=== PATIENT | female | born 1955 | race Caucasian/White ===

== ENCOUNTER 2017-04-20 11:51 | Day surgery (SDC) | payer OTHER ==
[~2017-04-20] VITALS: Ht 165.1 cm; Wt 54.4 kg
[~2017-04-20 11:51] MED LIST: 0.9% Sodium Chloride 1,000 ML IV PRN; RANI150C4 PO; Sodium Chloride LOK Flush 10 mL Syringe IV PRN; fentaNYL-PF 50 mCg/mL 2 mL Inj IVPUSH PRN
[2017-04-20 12:13] VITALS: BP 144/96; PULSE 77; RESP 20; O2SAT 100
[2017-04-20] MEDS ORDERED: CHOL3000 PO (12:36)
[2017-04-20 13:12] VITALS: BP 118/69; PULSE 84; O2SAT 99
[2017-04-20 13:21] VITALS: BP 132/78; PULSE 85; O2SAT 100
--- NOTE | 2017-04-20 14:36 | ENDO ---
[address] [address] ENDOSCOPY PROCEDURE PATIENT: LARA WOLF : 1955 MR#: [id number] ADMIT: 04/20/2017 JOB ID: [id number] DATE: 04/20/2017 TYPE OF OPERATION: 1. Esophagogastroduodenoscopy with biopsy. 2. Colonoscopy. PREOPERATIVE DIAGNOSIS(ES): 1. Rectal itchiness, colorectal cancer screening. 2. Gastroesophageal reflux disease. POSTOPERATIVE DIAGNOSIS(ES): 1. Normal upper endoscopy, status post biopsy. 2. Small internal hemorrhoids. ANESTHESIA: 1. Fentanyl 200 mcg. 2. Versed 10 mg IV administered. COMPLICATIONS: None. BLOOD LOSS: Minimal. DESCRIPTION OF PROCEDURE: After risks and benefits were explained to the patient, informed consent was obtained. After anesthesia administered, upper endoscope was inserted into the mouth and intubated through esophagus, stomach, second portion of the duodenum. Mucosa carefully examined. After the procedure was done, the scope was withdrawn and the procedure terminated. A colonoscope was then inserted per rectum to cecum. Mucosa carefully examined. Prep of the patient was fair. After procedure was done, the scope was withdrawn and the procedure terminated. FINDINGS: Upon inspection of the esophagus, the esophagus was normal without masses, ulcers or lesions. Z-line located 35 cm from incisors. Upon entering the stomach, stomach was normal without masses, ulcers or lesions. Retroflexion normal Duodenal bulb, first and second portion were normal. Biopsies taken from antrum, body and distal esophagus. Upon inspection of the anus, no masses, hemorrhoids, ulcers, fissures are seen. Throughout the entire examination, no polyps, masses or lesions. Retroflexion showed small internal hemorrhoids. IMPRESSION: 1. Small internal hemorrhoids. 2. Normal upper endoscopy status post biopsy. RECOMMENDATION: 1. Await pathology results. 2. Followup in GI clinic as needed.
--- NOTE | 2017-04-25 18:38 | PATH ---
SURGICAL PATHOLOGY Attending Physician:Pb Macias MD CASE STATUS: Signed Out PATIENT NAME: LARA WOLF PID: [id number] : 1955 DATE COLLECTED:04/20/2017 22:42 SPECIMEN: 1: Stomach, Antrum, Biopsy 2: Gastric, Biopsy 3: Esophagus, Biopsy CLINICAL HISTORY: NAUSEA AND VOMITING 1). ANTRUM BIOPSY AND RULE OUT H.PYLORI 2). GASTRIC BODY 3). DISTAL ESOPHAGUS FINAL DIAGNOSIS: 1.GASTRIC ANTRUM, BIOPSY: PORTIONS OF GASTRIC ANTRAL MUCOSA WITH MILD CHRONIC GASTRITIS. No H. pylori organisms identified by H&E stain or immunohistochemistry studies. Negative for intestinal metaplasia, dysplasia and malignancy. 2.GASTRIC BODY, BIOPSY: PORTIONS OF GASTRIC BODY-TYPE MUCOSA WITH MILD CHRONIC GASTRITIS. No H. pylori organisms identified by H&E stain or immunohistochemistry studies. Negative for intestinal metaplasia, dysplasia and malignancy. 3.DISTAL ESOPHAGUS, BIOPSY: SQUAMOCOLUMNAR JUNCTIONAL MUCOSA WITH INVOLVEMENT BY INTESTINAL METAPLASIA AND WITH INCREASED EOSINOPHILS IN THE SQUAMOUS COMPONENT; PLEASE SEE COMMENT. Negative for dysplasia and malignancy. ICD10 K22.7 NOTE: Part 3: The features of intestinal metaplasia could support a diagnosis of Gamez's metaplasia, in the appropriate clinical and imaging setting. No dysplasia is identified. The squamous mucosal component contains increased eosinophils (up to 45 eosinophils / high power field). These findings could be associated with reflux esophagitis, with eosinophilic esophagitis, or with proton pump inhibitor-responsive esophageal eosinophilia, in the appropriate clinical and imaging setting. Parts 1 and 2: IMMUNOHISTOCHEMISTRY: Block 1A and 2A: H. pylori: Negative. * This test was developed and its performance characteristics determined by [facility]. It has not been cleared or approved by the [place]. Food and Drug Administration. The FDA has determined that such clearance or approval is not necessary. This test is used for clinical purposes. It should not be regarded as investigational or for research. GROSS DESCRIPTION: The specimen is received in three formalin filled containers labeled with the patient's name. 1). The specimen is labeled "gastric antrum" and consists of a 0.3 x 0.3 x 0.3 CM portion of tissue which is entirely submitted in cassette 1A. 2). The specimen is labeled "gastric body" and consists of 2 portions tissue which aggregate to 0.2 x 0.2 x 0.2 CM. The specimen is entirely submitted in cassette 2A. 3). The specimen is labeled "distal esophagus" and consists of 2 portions of tissue which aggregate to 0.2 x 0.2 x 0.2 CM. The specimen is entirely submitted in cassette 3A. 04/20/2017SD MICRO DESCRIPTION: See diagnosis. ICD-9 CODES: CPT CODES: 1: 81626, 58738 2: 02904, 50354 3: 31960 Electronically Signed Out Maura Sheikh MD [facility] [address], [place] [address] Technical component performed at [facility], [facility] [address], [place], [address]
== END 2017-04-20 23:59 | disposition home or self-care (01) ==
LOC: END 11:51
PROVIDERS: ATTEND Internal Medicine Gastroenterology
DX: Z12.11 Encounter for screening for malignant neoplasm of colon (principal); K64.8 Other hemorrhoids; K22.70 Barrett's esophagus without dysplasia; K29.50 Unspecified chronic gastritis without bleeding; K21.9 Gastro-esophageal reflux disease without esophagitis; L29.0 Pruritus ani; M19.90 Unspecified osteoarthritis, unspecified site
CPT/HCPCS: 43239; 99153; G0121; G0500; J2250; J3010; J7030